=== PATIENT | female | born 1960 | race Caucasian/White ===

== ENCOUNTER → 2019-03-07 | Outpatient (CLI) | payer OTHER ==
[~2019-03-07] MED LIST: IOPAMIDOL 370 MG/ML 200 ML INFUS..BTL INJ ONE; SODIUM CHLORIDE 0.9% 100 ML 100 ML ONE
[2019-03-07 13:23] LABS: BLOOD UREA NITROGEN 10 mg/dL (7-26); BUN/CREATININE RATIO 14 (6-25); CREATININE, SERUM 0.74 mg/dL (0.57-1.11); EST GLOMERULAR FILTRATION RATE > 60 ML/MIN (60-)
--- NOTE | 2019-03-08 07:30 | Diagnostic Imaging Report ---
History: Carotid stenosis, CVA, Comparison studies:None Technique: Axial images were obtained from the thoracic inlet. Coronal and sagittal images reconstructed from the axial data. Additional MIP and volume rendered 3-D images were obtained. Intravenous contrast: 100 cc of Isovue 320. If present, stenosis is calculated utilizing the NASCET method which calculates the degree of stenosis with reference to the normal lumen of the carotid artery distal to the stenosis. Findings: Aortic arch and major vessels: Patent with mild calcified plaque at the bilateral subclavian artery origins without significant stenosis. Right carotid artery: Patent with mild scattered soft plaque in the common carotid artery which results in less than 20% stenosis. Extensive soft plaque and moderate calcified plaque in the carotid bulb which extend to the right ICA origin result in approximately 80% stenosis approximately 8 mm distal to the bifurcation. Patent, no tandem stenosis in the right cervical internal carotid artery. Calcified plaque in the right cavernous and paraophthalmic segments result in only mild stenosis. Patent left external carotid artery without significant stenosis. Left carotid artery: Calcified and soft plaque in the middle segment result in approximately 25% stenosis. Calcified and soft plaque are present within the carotid bulb. The left ICA is occluded. Reconstituted flow present within the intracranial left communicating segment of the left carotid artery. Patent left external carotid artery without significant stenosis. Vertebral arteries: Patent, no abnormalities. Included intracranial circulation: Patent, no proximal branch occlusion within the bilateral anterior, middle and posterior cerebral arteries. The intradural segments of the vertebral arteries and basilar artery are patent. Patent bilateral posterior communicating arteries and anterior commuting indicating artery. Incidental findings: Mildly degenerated C4-C5 and C5-C6 discs. Moderate right C5-C6 foraminal stenosis due to uncovertebral facet arthrosis. Lens replacements for previous cataract surgery. Small focal tree-in-bud with ground glass density in the left lower lobe. IMPRESSION: 1. Atherosclerotic plaques as described. 2. Left ICA occluded with reconstituted flow in the intracranial communicating ICA segment. 3. Approximately 80% stenosis in the right carotid bulb/ICA origin. 4. Mild stenosis in the common carotid arteries bilaterally. 5. Incidental small focal left lower lobe tree-in-bud/ground glass densities, possibly infectious or inflammatory. Consider follow-up chest CT to document resolution. Signed by: Dr. Kwame Mo M.D. on 03/08/2019 7:27 AM
== END ==
LOC: CT 12:28
PROVIDERS: ATTEND Internal Medicine Cardiovascular Disease
DX: I65.23 Occlusion and stenosis of bilateral carotid arteries (principal); I63.9 Cerebral infarction, unspecified; I77.9 Disorder of arteries and arterioles, unspecified
CPT/HCPCS: 36415; 70498; 82565; 84520; Q9967